=== PATIENT | female | born 1945 | race Caucasian/White ===

== ENCOUNTER 2016-07-05 15:24 | Emergency (ER) | payer MEDICARE, OTHER ==
[~2016-07-05 15:24] MED LIST: BYDUREON2 MG SQ; CHEWABLE MULTI1 EACH PO; CHILDRENS CHEWA81 MG PO; CITRACAL SOFT1 EACH PO; COREG25 MG PO; EFFEXOR37.5 MG PO; GLUCOPHAGE500 MG PO; HYDROCHLOROTH12.5 MG PO; LANTUS100 UNIT/1 SQ; RESTORIL30 MG PO; SYNTHROID112 MCG PO; TEKTURNA150 MG PO; VIIBRYD20 MG PO; ZANTAC150 MG PO
== END 2016-07-05 16:16 | disposition home or self-care (01) ==
LOC: ER 15:24
DX: J06.9 Acute upper respiratory infection, unspecified (principal); E11.9 Type 2 diabetes mellitus without complications; R05 Cough; Z90.49 Acquired absence of other specified parts of digestive tract; Z90.710 Acquired absence of both cervix and uterus; Z98.890 Other specified postprocedural states; Z88.2 Allergy status to sulfonamides; Z79.899 Other long term (current) drug therapy; Z79.1 Long term (current) use of non-steroidal anti-inflammatories (NSAID); Z79.4 Long term (current) use of insulin; Z79.82 Long term (current) use of aspirin
CPT/HCPCS: 99282; 99283